=== PATIENT | female | born 2000 | race Caucasian/White ===

== ENCOUNTER → 2019-02-07 | Emergency (ER) | payer OTHER ==
[~2019-02-07] VITALS: Ht 175.3 cm; Wt 90.0 kg
[~2019-02-07] MED LIST: HYDR-4011 PO; IBUPROFEN 800 MG TAB PO ONE; NAPR-985 PO
[2019-02-07 12:50] VITALS: Ht 175.3 cm; Wt 90.0 kg
--- NOTE | 2019-02-07 14:21 | ERD ---
ER Documentation Chief Complaint Chief Complaint RIGHT KNEE PAIN HPI 18-year-old female presenting with right knee pain. Patient states she was a concert yesterday and she fell down 3 steps. She landed on her right knee. She has some mild numbness around her knee and took Advil yesterday but no medication today. She has pain with ambulation. Medical history is migraines. NKDA. Surgical history denies. Social history smokes marijuana and vapes. ROS All systems reviewed and are negative except as per history of present illness. Medications Home Meds Active Scripts Naproxen* (Naprosyn*) 500 Mg Tablet, 500 MG PO BID PRN for PAIN AND/OR INFLAMMATION, #30 TAB Prov:ALTHEA RAI PA-C 02/07/19 Hydrocodone/Acetaminophen ([place] 5-325 Tablet) 1 Each Tablet, 1 TAB PO Q6H PRN for PAIN, #7 TAB Prov:ALTHEA RAI PA-C 02/07/19 PMhx/Soc Medical and Surgical Hx: pt denies Surgical Hx Hx Neurological Disorder: Yes (migraines) Hx Alcohol Use: No Hx Substance Use: Yes (marijuana) Hx Tobacco Use: Yes (vaps) Smoking Status: Current some day smoker FmHx Family History: No diabetes, No coronary disease, No other Physical Exam Vitals Vital Signs Date Temp Pulse Resp B/P (MAP) Pulse Ox O2 O2 Flow FiO2 Time Delivery Rate 02/07/19 98.1 86 18 128/86 99 12:50 (100) Physical Exam GENERAL: The patient is well-appearing, well-nourished, in no acute distress HEENT: Atraumatic. Conjunctivae are pink. Pupils equal, round, and reactive to light. There is no scleral icterus. Tympanic membranes clear bilaterally. Oropharynx clear. CHEST: Clear to auscultation bilaterally. There are no rales, wheezes or rhonchi. HEART: Regular rate and rhythm. No murmurs, clicks, rubs or gallops. EXTREMITIES: Tender to palpation over right kneecap with no obvious deformity. No valgus or varus deformity. Strength 5 out of 5 with flexion and extension. NEUROLOGIC: Alert and oriented. Cranial nerves II through XII intact. Motor strength in all 4 extremities with 5 out of 5 strength. Sensation grossly intact. Normal speech and gait. SKIN: Abrasions noted to bilateral knees with no active bleeding. Contusion noted over the right patella Results 24 hrs Current Medications Medications Dose Sig/Carmen Start Time Status Last (Trade) Ordered Route PRN Stop Time Admin Dose Reason Admin Ibuprofen 800 mg ONCE ONCE 02/07/19 DC 02/07/19 (Motrin) PO 13:30 13:14 02/07/19 13:31 Procedures/MDM DIAGNOSTIC IMAGING REPORT Patient: AMBROSIO DELA CRUZ : 2000 Age: 18 Sex: F MR #: [id number] DOS: 02/07/19 1307 Ordering MD: TD RAI PA-C Location: [facility] Room/Bed: PROCEDURE: RIGHT knee x-ray CLINICAL INDICATION: Knee pain TECHNIQUE: Weight bearing AP, lateral and oblique views of the knee were obta ined. COMPARISON: None FINDINGS: There is normal mineralization. There is a nondisplaced fracture of the superior third of the patella. There is no joint effusion. There are no significant degenerative changes. There is no significant soft tissue swelling. RPTAT: AA IMPRESSION: Nondisplaced linear fracture of the superior third of the patella. ER Course: Knee immobilizer applied on right knee. Neuro intact pre-and post knee immobilizer. Crutches given in ED. MDM: 18-year-old female presenting with knee pain. I have low suspicion for tendon or ligament rupture. Patient has findings consistent with patellar frac ture. Patient is placed in the immobilizer in the emergency room. I recommend remaining nonweightbearing and to follow-up with orthopedist. I will suspicion for compartment syndrome. Have low suspicion for vascular injury. Patient is discharged with strict ER precautions and told to follow-up with primary care within 1 to 2 days for close evaluation. All questions answered at discharge Departure Diagnosis: Primary Impression: Patella fracture Condition: Stable Patient Instructions: Patella Fracture Referrals: MINNIE MILLER MD [facility] YOU HAVE RECEIVED A MEDICAL SCREENING EXAM AND THE RESULTS INDICATE THAT YOU DO NOT HAVE A CONDITION THAT REQUIRES URGENT TREATMENT IN THE EMERGENCY DEPARTMENT. FURTHER EVALUATION AND TREATMENT OF YOUR CONDITION CAN WAIT UNTIL YOU ARE SEEN IN YOUR DOCTORS OFFICE WITHIN THE NEXT 1-2 DAYS. IT IS YOUR RESPONSIBILITY TO MAKE AN APPOINTMENT FOR FOLOW-UP CARE. IF YOU HAVE A PRIMARY DOCTOR --you should call your primary doctor and schedule an appointment IF YOU DO NOT HAVE A PRIMARY DOCTOR YOU CAN CALL OUR PHYSICIAN REFERRAL HOTLINE AT IF YOU CAN NOT AFFORD TO SEE A PHYSICIAN YOU CAN CHOSE FROM THE FOLLOWING [facility] [address] [facility] [address] [facility] [address] [facility] [address] [facility] [address] [facility] [facility] [address] [facility]. [facility] Urgent Care 7 a.m.- 11 p.m. Every Day of the Week NO APPOINTMENT OR AUTHORIZATION NEEDED [facility] Hours: Mon-Fri 9:00 AM - 5:00 PM Additional Instructions: FOLLOW UP WITH YOUR PRIMARY CARE PHYSICIAN TOMORROW.Return to this facility if you are not improving as expected. ALTHEA RAI PA-C Feb 07, 2019 14:21
== END | disposition home or self-care (01) ==
LOC: FTE 12:43
DX: S82.044A Nondisplaced comminuted fracture of right patella, initial encounter for closed fracture (principal); S80.212A Abrasion, left knee, initial encounter; F17.210 Nicotine dependence, cigarettes, uncomplicated; W10.9XXA Fall (on) (from) unspecified stairs and steps, initial encounter; Y92.9 Unspecified place or not applicable
CPT/HCPCS: 29505; 73562; Z7502; Z7610